=== PATIENT | female | born 1940 | race Caucasian/White ===

== ENCOUNTER 2023-12-20 09:59 | Observation (INO) | payer OTHER ==
[~2023-12-20] VITALS: Ht 154.9 cm; Wt 61.8 kg
[~2023-12-20 09:59] MED LIST: GABA300; Humalog100 UNIT/3; INSULANPEN SC; Lovastatin20 MG; METF500; RAMI2.5; ROPI2; SERT50
[2023-12-20 11:46] LABS: BASOPHILS ABSOLUTE AUTO 0.04 K/mm3 (0.00-0.23); BASOPHILS PERCENT AUTO 0 % (0-2); EOSINOPHILS ABSOLUTE AUTO 0.03 K/mm3 (0.00-0.68); EOSINOPHILS PERCENT AUTO 0 % (0-6); Hematocrit 41.2 % (33.0-51.0); Hemoglobin 13.6 g/dL (11.5-16.0); IMMATURE GRAN ABSOLUTE AUTO 0.05 K/mm3 (0.00-0.10); IMMATURE GRAN PERCENT AUTO 0 % (0-1); LYMPHOCYTES ABSOLUTE AUTO 1.99 K/mm3 (0.84-5.20); LYMPHOCYTES PERCENT AUTO 18 % (21-46); MONOCYTES ABSOLUTE AUTO 0.99 K/mm3 (0.16-1.47); MONOCYTES PERCENT AUTO 9 % (4-13); Mean Corpuscular HGB 30.8 pg (26.0-34.0); Mean Corpuscular Volume 93 fL (80-100); Mean Platelet Volume 9.7 fL (9.1-12.4); NEUTROPHILS ABSOLUTE AUTO 8.12 K/mm3 (1.96-9.15); NEUTROPHILS PERCENT AUTO 72 % (41-73); Platelet Count 231 K/mm3 (150-400); RDW Coefficient Variation 12.5 % (11.7-14.2); RDW Standard Deviation 43.1 fL (35.1-46.3); Red Blood Cell Count 4.41 M/mm3 (3.80-5.20); White Blood Cell Count 11.22 K/mm3 (4.00-11.30)
[2023-12-20 12:14] LABS: Albumin, Blood 3.4 g/dL (3.4-5.0); Albumin/Globulin Ratio 0.9 (0.8-1.8); Bilirubin, Total 0.3 mg/dL (0.1-1.0); Bun/Creatinine Ratio 22.4 (12.0-20.0); Calcium, Blood 9.2 mg/dL (8.5-10.1); Creatinine, Blood 0.76 mg/dL (0.40-1.00); Globulin, Blood 3.7 g/dL (2.2-4.0); Potassium, Blood 4.2 mmol/L (3.5-5.5); Total Protein, Blood 7.1 g/dL (6.4-8.2)
[2023-12-20] MEDS ORDERED: Ampicillin Sod/Sulbactam Sod 3 GM in NS 100 ML IV ONE (15:50)
[2023-12-20] MEDS ORDERED: Ondansetron HCl 2 MG / ML 2ML Vial IV PRN (18:05)
[2023-12-20] MEDS ORDERED: OxyCODONE HCL 5 MG TAB PO PRN (18:05)
[2023-12-20] MEDS ORDERED: Acetaminophen 325 MG TABLET PO PRN (18:05)
[2023-12-20] MEDS ORDERED: NS 1,000 ML IV SCH (18:05)
[2023-12-20 20:03] VITALS: BP 171/79
[2023-12-20] MEDS ORDERED: Lactobacil 2-S.Thermo-Bifido 1 1 Cap PO SCH (21:00)
[2023-12-20] MEDS ORDERED: NOVOLOG FL100 UNIT/3 SC (21:35)
[2023-12-20] MEDS ORDERED: ZOLOFT10013 PO (21:37)
[2023-12-20] MEDS ORDERED: ROPINIROLE HCL4 M2 PO (21:38)
[2023-12-20] MEDS ORDERED: RAMIPRIL PO (21:39)
[2023-12-20] MEDS ORDERED: LOVASTATIN40 MG PO (21:39)
[2023-12-20] MEDS ORDERED: INSULIN AS100 UNIT/8 SC ×2 (21:48)
[2023-12-20] MEDS ORDERED: CEPH500 PO (21:49)
[2023-12-20] MEDS ORDERED: Cipro500 MG PO (21:50)
[2023-12-20] MEDS ORDERED: Lisinopril 5 MG Tab PO SCH (22:25)
[2023-12-20] MEDS ORDERED: Insulin Glargine-Yfgn 100 Unit/mL 3 ML SYR SC SCH (22:25)
[2023-12-21] MEDS ORDERED: CeFAZolin Sodium 2,000 MG in NS 100 ML IV SCH
[2023-12-21 02:27] VITALS: BP 172/79
--- NOTE | 2023-12-21 06:46 | NUR ---
NEW ADMISSION. PT GIVEN PAIN MEDICATION EARLY IN SHIFT FOR HEAD ACHE AND FINGER PAIN. PT KEPT NPO AFTER MIDNIGHT FOR POSSIBLE PROCEDURE TODAY, DID HAVE A SANDWICH ON ARRIVAL TO FLOOR, BLOOD SUGARS REMAIN STABLE. dEXACOM GLUCOSE MONITOR IN PLACE ON ABDOMEN. 2 RN SKIN CHECK COMPLETED WITH MILES FOR ADMISSION.
[2023-12-21] MEDS ORDERED: Insulin Human Lispro 100 Units/ML 3ML Syringe SC SCH ×2 (07:30→12:00)
[2023-12-21 07:48] VITALS: BP 142/67
[2023-12-21] MEDS ORDERED: Indomethacin 25 MG Cap PO SCH (12:30)
[2023-12-21 15:24] VITALS: BP 121/72
[2023-12-21 19:33] VITALS: BP 128/72
--- NOTE | 2023-12-21 19:49 | NUR ---
SHIFT SUMMARY PT AXO, PLEASANT AND COOPERATIVE WITH CARE. UP AD SYLWIA WITH STEADY GAIT IN ROOM. VSS. NEW IV PLACED AND OLD IV DC'D THIS SHIFT. IV PATENT AND SALINE LOCKED AT THIS TIME. PT MEDICATED FOR PAIN PER EMAR BUT PT REPORTS NO CHANGE IN PAIN LEVEL. PT DOES STATE THAT HER FINGER IS IMPROVING SINCE START OF SHIFT. BED IN LOW POSITION, CALL LIGHT WITHIN REACH. REPORT GIVEN TO CLIPPER OPERATOR NURSE WHO ASSUMES CARE AT THIS TIME. AT 1527 PT STATED THAT SHE FELT HYPOGLYCEMIC. VET TECH CHECKED CBG WHICH SHOWED PT BLOOD SUGAR WAS 59. PT GIVEN CRANBERRY JUICE PER HYPOGYLCEMIA PROTOCOL AND PREFERENCE AND AT 1600 BLOOD SUGAR RECOVERED TO 120.
[2023-12-21] MEDS ORDERED: rOPINIRole HCl 0.25 MG Tab PO SCH (21:00)
[2023-12-22] MEDS ORDERED: NS 100 ML IV ONE (00:33)
[2023-12-22 03:04] VITALS: BP 145/76
--- NOTE | 2023-12-22 04:53 | NUR ---
SHIFT SUMMARY PT. IS PLEASANT, COOP WITH CARE, ABLE TO MAKE HER NEEDS KNOWN AND A/O. HS CB, INSULING ADMINISTERED WITH A SNACK. C/O NECK PAIN 8/10WORST AND HEADACHE AT HS, PROVIDED WITH ICE AND MEDICATED (SEE EMAR.) WITH GOOD RESULTS; PT.REPORTS 0/10WORST EFFECTIVNESS. NO ACUTE EVENTS/DISTRESS NOTED/REPORTED DURING THE BANQUET CAPTAIN. BED AT THE LOWEST POSITION, CALL LIGHT WITHIN REACH. WILL HAND OFF TO THE INCOMING SHIFT NURSE.
[2023-12-22 07:45] VITALS: BP 129/117
[2023-12-22] MEDS ORDERED: Insulin Human Lispro 100 Units/ML 3ML Syringe SC SCH (09:00)
[2023-12-22] MEDS ORDERED: Atorvastatin 10 MG Tab PO SCH (09:00)
[2023-12-22] MEDS ORDERED: VISBIOME 112.51 EACH PO (11:04)
--- NOTE | 2023-12-22 12:13 | NUR ---
DISCHARGE NOTE: WENT OVER DISCHARGE WITH PATIENT. SHE VOICED UNDERSTANDING OF INSTRUCTIONS. HER IV WAS REMOVED AND SHE GOT DRESSED AND COLLECTED HER BELONGINGS. HOME INSULIN PEN WAS RETURNED. PATIENT DECLINED TO BE WHEELED DOWN AND WALKED OUT WITH FAMILY MEMBER. NO SIGNS OR SYMPTOMS OF DISTRESS WITH DISCHARGE.
== END 2023-12-22 11:58 | disposition home or self-care (01) ==
LOC: ER 09:59 → MEDS 10:00
PROVIDERS: Physician Assistant; ADMIT Family Medicine
DX: L03.011 Cellulitis of right finger (principal); M19.041 Primary osteoarthritis, right hand; E10.9 Type 1 diabetes mellitus without complications; I10 Essential (primary) hypertension; E78.5 Hyperlipidemia, unspecified; G25.81 Restless legs syndrome; Z88.2 Allergy status to sulfonamides; Z88.1 Allergy status to other antibiotic agents; Z79.4 Long term (current) use of insulin; Z79.84 Long term (current) use of oral hypoglycemic drugs; Z79.899 Other long term (current) drug therapy
CPT/HCPCS: 36415; 73120; 73201; 80053; 82947; 84550; 85025; 85651; 96361; 96365; 96366; 96367; 96376; 99285-25; A9270; G0378; J0295; J0690; J1815; J7030; Q9967

== ENCOUNTER 2024-05-21 06:54 | Day surgery (SDC) | payer OTHER ==
[~2024-05-21] VITALS: Ht 154.9 cm; Wt 60.9 kg
[~2024-05-21 06:54] MED LIST changes: +CEPH500 PO; +Cipro500 MG PO; +INSULIN AS100 UNIT/8 SC; +LOVASTATIN40 MG PO; +Lactated Ringer's 1,000 ML IV ONE; +NOVOLOG FL100 UNIT/3 SC; +RAMIPRIL PO; +ROPINIROLE HCL4 M2 PO; +VISBIOME 112.51 EACH PO; +ZOLOFT10013 PO
[2024-05-21] MEDS ORDERED: Lactated Ringer's 1,000 ML IV ONE (07:24)
--- NOTE | 2024-05-21 07:24 | NUR ---
05/21/24 0724 Mae Mendes TIME OUT PERFORMED AT BEDSIDE AT [address] SAUNDERS IMMEDIATELY PRIOR TO INJECTION BY DR SAUNDERS OF MIXTURE OF 1ML 8.4% SODIUM BICARB AND 9ML 1% LIDOCAINE WITH EPI [id number]. PT TOLERATED INJECTION WELL.
[2024-05-21] MEDS ORDERED: NS 50 ML IV ONE (07:35)
[2024-05-21] MEDS ORDERED: CeFAZolin Sodium 2,000 MG VIAL ONE (07:35)
[2024-05-21] MEDS ORDERED: CeFAZolin Sodium 1000 mg Vial ONE (07:51)
[2024-05-21] MEDS ORDERED: propofoL 20 ML IV ONE (07:51)
--- NOTE | 2024-05-21 08:19 | NUR ---
05/21/24 0819 Augustin Jeronimo PT INSTRUCTED TO MONITOR B/P AT HOME AND FOLLOW UP WITH PCP IF NEEDED.
[2024-05-21 08:20] VITALS: BP 127/72
== END 2024-05-21 08:22 | disposition home or self-care (01) ==
LOC: ORSCSDS 06:54
PROVIDERS: Orthopaedic Surgery
PROC: 01N54ZZ Release Median Nerve, Percutaneous Endoscopic Approach (ICD-10-PCS; principal; 2024-05-21 08:00)
DX: G56.01 Carpal tunnel syndrome, right upper limb (principal); I10 Essential (primary) hypertension; F41.9 Anxiety disorder, unspecified; E13.8 Other specified diabetes mellitus with unspecified complications; Z79.899 Other long term (current) drug therapy; Z79.4 Long term (current) use of insulin; Z79.82 Long term (current) use of aspirin
CPT/HCPCS: 82947; J0690; J2704; J7120